=== PATIENT | female | born 1945 | race Caucasian/White ===

== ENCOUNTER 2018-07-17 09:56 | Observation (INO) | payer MEDICARE ==
[~2018-07-17] VITALS: Ht 172.7 cm; Wt 112.3 kg
[2018-07-17 11:00] LABS: BASOPHILS # (AUTO) 0.1 (0.0-0.1); BASOPHILS % 0.9 % (0.0-1.0); EOSINOPHILS # (AUTO) 0.4 (0.0-0.4); EOSINOPHILS % 4.5 % (0.0-6.0); HEMATOCRIT 46.2 % (34.2-44.1); HEMOGLOBIN 15.1 g/dL (12.0-16.0); LYMPHOCYTES # (AUTO) 1.9 (1.0-3.2); LYMPHOCYTES % 20.2 % (18.0-39.1); MEAN CORPUSCULAR HEMOGLOBIN 29.6 pg (28-32); MEAN CORPUSCULAR HGB CONC 32.7 g/dL (31-35); MEAN CORPUSCULAR VOLUME 90.6 fL (81-99); MONOCYTES # (AUTO) 0.7 (0.2-0.8); MONOCYTES % 6.8 % (4.4-11.3); NEUTROPHILS # (AUTO) 6.5 (2.1-6.9); NEUTROPHILS % 67.3 % (38.7-80.0); PLATELET COUNT 270 x10e3/uL (140-360); RED CELL DISTRIBUTION WIDTH 13.6 % (11.7-14.4)
[2018-07-17 11:21] LABS: ALANINE AMINOTRANSFERASE 11 IU/L (0-55); ALBUMIN 3.9 g/dL (3.5-5.0); ALBUMIN/GLOBULIN RATIO 1.1 (0.8-2.0); ALKALINE PHOSPHATASE 104 IU/L (40-150); AMYLASE 44 U/L (25-125); ANION GAP 12.1 mmol/L (8-16); BLOOD UREA NITROGEN 10 mg/dL (7-26); BUN/CREATININE RATIO 11 (6-25); CALCIUM 9.7 mg/dL (8.4-10.2); CARBON DIOXIDE 30 mmol/L (22-29); CHLORIDE 100 mmol/L (98-107); CREATININE, SERUM 0.87 mg/dL (0.57-1.11); EST GLOMERULAR FILTRATION RATE > 60 ML/MIN (60-); GLUCOSE 124 mg/dL (74-118); LIPASE 22 U/L (8-78); POTASSIUM 4.1 mmol/L (3.5-5.1); SODIUM 138 mmol/L (136-145)
[2018-07-17 11:48] LABS: CLARITY,URINE CLEAR (CLEAR); COLOR,URINE YELLOW (YELLOW)
[2018-07-17 11:49] LABS: BILIRUBIN,URINE NEGATIVE (NEGATIVE); KETONES,URINE NEGATIVE (NEGATIVE); LEUKOCYTE ESTERASE ,URINE NEGATIVE (NEGATIVE); NITRITE,URINE NEGATIVE (NEGATIVE); PROTEIN,URINE DIPSTICK NEGATIVE (NEGATIVE); URINE UROBILINOGEN 0.2 mg/dL (0.2 - 1)
[2018-07-17 12:15] LABS: BACTERIA,URINE FEW /HPF; EPITHELIAL CELLS,URINE FEW /LPF; RBC,URINE 0-5 /HPF (0-5)
[2018-07-17 12:33] LABS: INR 0.86; PROTHROMBIN TIME 12.2 seconds (11.9-14.5)
[2018-07-17 12:34] LABS: PARTIAL THROMBOPLASTIN TIME 26.2 seconds (23.8-35.5)
--- NOTE | 2018-07-17 14:30 | NUR ---
RECEIVED PT FROM [facility] WITH STEADY GAIT. PT GOWNED AND PLACED ON THE MONITOR
--- NOTE | 2018-07-17 14:35 | NUR ---
JHONNY MARTINEZ AT BEDSIDE FOR RECTAL EXAM. GUIAC POSITIVE. WILL SEND TO LAB
[2018-07-17] MEDS ORDERED: ALLOPURINOL300 MG PO (15:03)
[2018-07-17] MEDS ORDERED: COLCRYS0.6 MG PO (15:03)
[2018-07-17] MEDS ORDERED: FARXIGA PO (15:03)
[2018-07-17] MEDS ORDERED: FUROSEMIDE40 MG PO (15:03)
[2018-07-17] MEDS ORDERED: NORCO 10-325 T1 EACH PO (15:03)
[2018-07-17] MEDS ORDERED: LOVASTATIN20 MG PO (15:03)
[2018-07-17] MEDS ORDERED: LOVASTATIN40 MG (15:03)
[2018-07-17] MEDS ORDERED: METFORMIN HCL500 MG PO (15:03)
[2018-07-17] MEDS ORDERED: [UNRECOGNIZED DRUG - OTHER] PO (15:09)
[2018-07-17] MEDS ORDERED: ASPIR 8181 MG PO (15:09)
[2018-07-17] MEDS ORDERED: GABAPENTIN300 MG PO (15:09)
[2018-07-17] MEDS ORDERED: ZANAFLEX4 MG PO (15:09)
[2018-07-17] MEDS ORDERED: CARBIDOPA-LEVO1 EACH PO (15:09)
[2018-07-17] MEDS ORDERED: LINZESS PO (15:09)
[2018-07-17] MEDS ORDERED: COMBIVENT RESPIM4 GM IH (15:13)
[2018-07-17] MEDS ORDERED: SYMBICORT 16010.2 GM INH (15:13)
[2018-07-17] MEDS ORDERED: ONDANSETRON HCL INJ 2MG/ML 2ML 2 MG/ML VIAL IV PRN (16:15)
--- NOTE | 2018-07-17 17:05 | Diagnostic Imaging Report ---
EXAMINATION: CT of the abdomen and pelvis with contrast. TECHNIQUE: Spiral CT images of the abdomen and pelvis were performed from the lung bases to the lesser trochanters after the intravenous administration of 100 cc of Isovue-370. Coronal and sagittal reformatted images were obtained. COMPARISON: None. CLINICAL HISTORY:GI bleed, abdominal pain. Patient reports history of cholecystectomy, hysterectomy, breast reduction DISCUSSION: ABDOMEN/PELVIS: LOWER THORAX:Subsegmental atelectasis in the dependent lower lobes. HEPATOBILIARY: No focal hepatic lesions. No intra-or extrahepatic biliary ductal dilation. The gallbladder has been removed. SPLEEN: No splenomegaly. PANCREAS: No focal masses or ductal dilatation. ADRENALS: No adrenal nodules. KIDNEYS/URETERS: No hydronephrosis, stones, or solid mass lesions. PELVIC ORGANS/BLADDER: The bladder is normal. PERITONEUM/RETROPERITONEUM: No free air or fluid. LYMPH NODES: No pelvic sidewall, retroperitoneal, or mesenteric lymphadenopathy. VESSELS: Extensive atherosclerotic calcification of the abdominal aorta and major branch vessels. Incidental note of foth-cs-diso origins of the common hepatic and splenic arteries from the abdominal aorta. The left gastric artery originates separately as well, just superiorly to the common hepatic and splenic origins. The right hepatic artery is replaced to the superior mesenteric artery. Single bilateral renal arteries. LB origin is patent. Portal vein, splenic vein, and central superior mesenteric vein are patent. GI TRACT: The sigmoid colon is markedly redundant. Wall thickening, mucosal enhancement, and mesocolic inflammation involving the cecum and ascending colon. No drainable fluid collection. Appendix is normal. Small submucosal lipoma distal ileum. No small bowel dilatation to suggest obstruction. The stomach is collapsed with prominence of the rugal folds. BONES AND SOFT TISSUE: Multilevel degenerative disc changes and facet arthropathy of the lumbar spine. Soft tissue calcification inferior left breast. Otherwise no focal soft tissue abnormalities. IMPRESSION: Findings compatible with colitis involving the cecum and ascending colon, likely infectious or inflammatory in nature. No иван perforation or drainable fluid collection. Atherosclerotic vascular disease. Signed by: Dr. Holden Santana M.D. on 07/17/2018 5:02 PM
[2018-07-17] MEDS: SODIUM CHLORIDE 0.9% 1000ML 1,000 ML IV SCH ×2 (17:17→23:35)
[2018-07-17] MEDS: PANTOPRAZOLE 40 MG 10ML VIAL IV SCH (17:17)
[2018-07-17 17:45] LABS: HEMATOCRIT 43.3 % (34.2-44.1); HEMOGLOBIN 14.3 g/dL (12.0-16.0)
--- OUTSIDE RECORDS SUMMARY | 2018-07-17 18:18 | XMS REPORT ---
Author Author [facility] Address Unknown Phone Unavailable Care Team Providers Care Microbial Specialist Name Role Phone Alisa LARA Unavailable Unavailable Problems This patient has no known problems. Allergies, Adverse Reactions, Alerts This patient has no known allergies or adverse reactions. Medications This patient has no known medications. Results Test Description Test Time Test Comments Text Results Atomic Results Result Comments CT ABDOMEN/PELVIS W 2018-07-17 16:50:00 [place] [address] Patient Name: JAK DEGROOT MR #: [id number] : 1945 Age/Sex: 73/F Req #: [id number] Adm Physician: Ordered by: JHONNY KEY METAL HANGING SUPERVISOR Report #: [id number] Location: ER Room/Bed: Procedure: [id number] CT/CT ABDOMEN/PELVIS W Exam Date: 07/17/18 Exam Time: 1630 REPORT STATUS: Signed EXAMINATION: CT of the abdomen and pelvis with con trast. TECHNIQUE: Spiral CT images of the abdomen and pelvis were performed from the lung bases to the lesser trochanters after the intravenous administration of 100 cc of Isovue-370. Coronal and sagittal reformatted images were obtained. COMPARISON: None. CLINICAL HISTORY:GI bleed, abdominal pain. Patient reports history of cholecystectomy, hysterectomy, breast reduction DISCUSSION: ABDOMEN/PELVIS: LOWER THORAX:Subsegmental atelectasis in the dependent lower lobes. HEPATOBILIARY: No focal hepatic lesions. No intra-or extrahepatic biliary ductal dilation. The gallbladder has been removed. SPLEEN: No splenomegaly. PANCREAS: No focal masses or ductal dilatation. ADRENALS: No adrenal nodules. KIDNEYS/URETERS: No hydronephrosis, stones, or solid mass lesions. PELVIC ORGANS/BLADDER: The bladder is normal. PERITONEUM/RETROPERITONEUM: No free air or fluid. LYMPH NODES: No pelvic sidewall, retroperitoneal, or mesenteric lymphadenopathy. VESSELS: Extensive atherosclerotic calcification of the abdominal aorta and major branch vessels. Incidental note of ntjk-qd-rorn origins of the common hepatic and splenic arteries from the abdominal aorta. The left gastric artery originates separately as well, just superiorly to the common hepatic and splenic origins. The right hepatic artery is replaced to the superior mesenteric artery. Single bilateral renal arteries. LB origin is patent. Portal vein, splenic vein, and central superior mesenteric vein are patent. GI TRACT: The sigmoid colon is markedly redundant. Wall thickening, mucosal enhancement, and mesocolic inflammation involving the cecum and ascending colon. No drainable fluid collection. Appendix is normal. Small submucosal lip juan carlos distal ileum. No small bowel dilatation to suggest obstruction. The stomach is collapsed with prominence of the rugal folds. BONES AND SOFT TISSUE: Multilevel degenerative disc changes and facet arthropathy of the lumbar spine. Soft tissue calcification inferior left breast. Otherwise no focal soft tissue abnormalities. IMPRESSION: Findings compatible with colitis involving the cecum and ascending colon, likely infectious or inflammatory in nature. No иван perforation or drainable fluid collection. Atherosclerotic vascular disease. Signed by: Dr. Guevara Stack M.D. on 07/17/2018 5:02 PM Dictated By: GUEVARA STACK MD 01 Transcribed By: LON on 07/17/181701 COPY TO: JHONNY KEY NP
[2018-07-17] MEDS: LEVOFLOXACIN 750MG/D5W 150ML 150 ML IV SCH (19:45)
[2018-07-17 20:10] VITALS: BP 174/78
--- NOTE | 2018-07-17 20:20 | NUR ---
Admitted to unit. A&O x3. Oriented to environment and call light within reach. Explained that would be back to ask some questions and home med list. Verbalized understanding. Will continue to monitor.
--- NOTE | 2018-07-17 20:40 | NUR ---
Notifed answering service of Thiago Glynn of new consult and requesting call back for orders. Spoke with Ashish. Awaking call back.
[2018-07-17 20:45] VITALS: BP 174/78
[2018-07-17] MEDS ORDERED: IOPAMIDOL 370 MG/ML 200 ML INFUS..BTL INJ ONE (21:15)
[2018-07-17] MEDS ORDERED: SODIUM CHLORIDE 0.9% 50ML 50 ML ONE (21:15)
[2018-07-17 21:51] VITALS: BP 148/74
--- NOTE | 2018-07-17 22:10 | NUR ---
Return call from MD Dr Thiago Glynn. Patient concerned that NPO and DM and has not ate since breakfast. FSBS 123. Order for NS, Would like to change fluid. New orders: Fluid liquid diet, golytely prep and NPO after 0900 07/18/18, Consent for colonoscopy. Will come see patient.
[2018-07-17] MEDS ORDERED: PEG (High)/E-LYTE SOLN 4,000 ML BTL PO ONE (22:15)
[2018-07-17] MEDS: METRONIDAZOLE 500MG/NS 100ML 100 ML IV SCH (23:00)
[2018-07-17] MEDS ORDERED: LOSARTAN POTASS25 MG PO (23:00)
[2018-07-18] VITALS (8 sets, daily range): BP systolic 157–203; BP diastolic 72–115
--- NOTE | 2018-07-18 | NUR ---
Working on golytely prep. Needing to take a break and will drinks some more in a little while.
--- NOTE | 2018-07-18 02:30 | NUR ---
Working on [email or web address] prep, completed half of jug and having BM. Will continue to monitor.
--- NOTE | 2018-07-18 04:00 | NUR ---
Continues to work on golboarding pass prep. Tolerating fair. Dislikes flavoring that was in prep but continuing to drink. Will continue to monitor.
--- NOTE | 2018-07-18 04:37 | NUR ---
Up ambulating in landeros, tolerating well. Will continue to monitor.
[2018-07-18] MEDS: METRONIDAZOLE 500MG/NS 100ML 100 ML IV SCH ×3 (05:45→22:04)
--- NOTE | 2018-07-18 05:56 | NUR ---
Left message with answering service (Ally) for Dr Mckay for orders for elevated BP. Awaiting call back.
[2018-07-18 06:11] LABS: ANION GAP 10.6 mmol/L (8-16); BLOOD UREA NITROGEN 10 mg/dL (7-26); BUN/CREATININE RATIO 12 (6-25); CALCIUM 9.4 mg/dL (8.4-10.2); CARBON DIOXIDE 27 mmol/L (22-29); CHLORIDE 100 mmol/L (98-107); CREATININE, SERUM 0.81 mg/dL (0.57-1.11); EST GLOMERULAR FILTRATION RATE > 60 ML/MIN (60-); GLUCOSE 141 mg/dL (74-118); POTASSIUM 3.6 mmol/L (3.5-5.1); SODIUM 134 mmol/L (136-145)
--- NOTE | 2018-07-18 06:25 | NUR ---
Left message with Dr Mckay answering service ( Odalis) Need orders for elevated BP. Awaiting call back.
--- NOTE | 2018-07-18 06:47 | NUR ---
BP 181/84, 82. Waiting call back from Dr Mckay
--- NOTE | 2018-07-18 07:20 | NUR ---
Return call from Dr Mckay. BP at 0640 181/84, 82. Give hydralazine 10 mg IV Q 6 hrs PRN BP greater than 160/90 since will be NPO after 0900. Losartan 50 mg po daily, Clonidine 0.1mg po Q 6hrs PRN for BP greater than 160/90 ( give after procedure when not NPO) STAT CBC this am. Patient updated with new orders.
[2018-07-18] MEDS ORDERED: HYDRALAZINE HCL 20 MG/ML VIAL IV PRN (07:30)
--- NOTE | 2018-07-18 07:35 | NUR ---
PATIENT AMBULATED TO THE RESTROOM AND BACK TO BED. GOLYTELY TREATMENT IN PROGRESS. IV FLUID INFUSING ORDERED. FEET DRY AND SCALY, YELLOW SOCKS APPLIED. BED IN LOWER POSITION, CALL LIGHT AT REACH.
[2018-07-18 07:42] LABS: BASOPHILS # (AUTO) 0.1 (0.0-0.1); BASOPHILS % 0.9 % (0.0-1.0); EOSINOPHILS # (AUTO) 0.4 (0.0-0.4); HEMOGLOBIN 14.4 g/dL (12.0-16.0); LYMPHOCYTES % 22.1 % (18.0-39.1); MEAN CORPUSCULAR HEMOGLOBIN 29.4 pg (28-32); MEAN CORPUSCULAR HGB CONC 32.7 g/dL (31-35); MEAN CORPUSCULAR VOLUME 89.8 fL (81-99); MONOCYTES # (AUTO) 0.7 (0.2-0.8); MONOCYTES % 7.4 % (4.4-11.3); NEUTROPHILS % 65.3 % (38.7-80.0); PLATELET COUNT 254 x10e3/uL (140-360); RED CELL DISTRIBUTION WIDTH 13.6 % (11.7-14.4)
[2018-07-18] MEDS: PANTOPRAZOLE 40 MG 10ML VIAL IV SCH ×2 (09:24→17:35)
--- NOTE | 2018-07-18 11:19 | NUR ---
PATIENT REMAINS NPO FOR COLONOSCOPY, STOOL CLEARING AT THIS TIME. IN BED WITH CALL LIGHT AT REACH.
[2018-07-18] MEDS ORDERED: GLUCAGON FOR INJ 1 MG VIAL ONE (14:12)
--- NOTE | 2018-07-18 15:10 | NUR ---
Visit made by the Spiritual Care Department Pastoral Visitor, Deneen Osman. Pt out of room and no family at bedside. A card was left at the bedside to indicate a missed visit from a member of the Spiritual Care team and to inform the pt and family of the availability of a Microphone Operator 24 hours a day/7 days a week. A gauger chief delivery will follow up as able. IRAJ PARRISH Microphone Operator Spiritual Care Department O: [phone] Pager: [phone] ([phone] number calling from)
--- NOTE | 2018-07-18 15:37 | NUR ---
SOCIAL WORK INITIAL ASSESSMENT Chip Mixer to bedside to discuss plan of care with patient/family. CM/SW role and care transitions discussed. Anticipated discharge plan discussed along with duration of care. CM/SW discussed patients right to make decisions in care. CM/SW work hours given. Patient lives: IN HOUSE IN [place] WITH GOD DAUGHTER AND FAMILY Admit/Transfer: VIA ED FROM HOME POA/Emergency contact: GRANDDAUGHTER JERMAINE KELLEYITT [phone] GRANDDAUGHTER GREG IS POA [phone] Current/Previous Home Health: NONE PCP/Follow-up Care: AIDAN LOFTON [facility] Current/Previous DME: NONE Other Services: NONE Employment Status: RETIRED Areas of Concerns: NONE Referral Needs: NONE Education Needs: NONE IMM/HERNDON given and signed (if applicable): UPON ADMISSION Goal for discharge: RETURN HOME CM/SW left business card at the bedside with contact information. Name and number was also written on the patients whiteboard. Patient verbalized understanding of discussion. CM will follow-up with ongoing discharge and transition of care needs.
--- NOTE | 2018-07-18 16:00 | NUR ---
PATIENT BACK TO UNIT FROM ENDOSCOPY. REPORT RECEIVED FROM NICOLLEROE. PATIENT HAD A COLONOSCOPY, 14 POLYPS NOTED AND A MASS IN THE SIGMOID COLON. PATIENT IS ALERT AND VERBALLY RESPONSIVE. DENIED PAIN AT THIS TIME. IV ANTIBIOTIC INFUSING ORDERED. BED IN LOWER POSITION, CALL LIGHT AT REACH.
--- NOTE | 2018-07-18 16:05 | NUR ---
96.2-85-20-203/99 AND 96% ON RA.
[2018-07-18] MEDS: CLONIDINE HCL 0.1 MG TAB PO PRN ×2 (16:20→22:33)
[2018-07-18] MEDS: NICOTINE 21 MG/EA PATCH TOP SCH (16:23)
[2018-07-18] MEDS ORDERED: PROPOFOL IV EMULSION 10 MG/ML 20 ML VIAL ONE (17:21)
--- NOTE | 2018-07-18 17:23 | Operative Report ---
DATE OF PROCEDURE: 07/18/2018 SURGEON: Abimael Glynn MD PROCEDURES: Colonoscopy with polypectomy and biopsies. INDICATIONS FOR COLONOSCOPY: Rectal bleeding. MEDICATION: The patient was done under MAC, please see anesthesiologist's note. PROCEDURE IN DETAIL: With the patient in the left lateral decubitus position, flexible fiberoptic Olympus colonoscope was inserted into the rectum with ease and advanced with some difficulty all the way to the cecum. Two polyps were snared from the cecum. Four polyps were snared from the ascending colon. One polyp was snared from the hepatic flexure and one polyp was snared from the distal transverse colon. Three polyps were snared and two polyps were hot biopsied from the descending colon. One polyp was snared from the proximal sigmoid colon. A large approximately 5 cm somewhat circumferential mass was noted in the mid sigmoid colon and biopsies were obtained for frozen section and were positive for adenocarcinoma. The rest of the sigmoid and the rectum grossly appeared to be within normal limits. The scope was then retroflexed into the distal rectum and small internal hemorrhoids were noted, none of which was actively bleeding. The scope was then straightened out, it was subsequently withdrawn. The patient tolerated the procedure well. Of note, the prep overall was suboptimal with retained stools in the colon. IMPRESSION: 1. Cecal polyps x2, snared. 2. Ascending colon polyps x4, snared. 3. Hepatic flexure polyp x1, snared. 4. Transverse colon polyp x1, snared. 5. Descending colon polyps x5, three snared and 2 hot biopsied. 6. Proximal sigmoid colon polyp x1 snared. 7. Mid sigmoid mass approximately 5 cm in size, semicircumferential. Frozen section biopsies were positive for adeno CA. 8. Internal hemorrhoids, none actively bleeding. PLAN: Follow up histology. General surgical consultation. The patient will need a followup colonoscopy one year after her surgery. Abimael Glynn MD [facility] /[id number] cc: Cayla Mckay MD
[2018-07-18] MEDS ORDERED: MIDAZOLAM HCL 2 MG/2 ML VIAL ONE (17:26)
[2018-07-18] MEDS ORDERED: FENTANYL CITRATE/PF 100MCG/2 ML INJ ONE (17:26)
[2018-07-18] MEDS: LOSARTAN POTASSIUM 100 MG TAB PO SCH (17:30)
--- NOTE | 2018-07-18 17:55 | NUR ---
PATIENT NOTED WITH B/P OF 203/99. PRN CLONIDINE GIVEN. B/P RECHECKED WITH THE READING OF 187/98, SCHEDULE LOSARTAN GIVEN. WILL CLOSELY MONITOR.
--- NOTE | 2018-07-18 19:15 | NUR ---
Paged Dr Mckay ( spoke with Laurel) patient cleared from consults for discharge. Awaiting call back to see if cleared from Dr Mckay for discharge.
--- NOTE | 2018-07-18 19:54 | NUR ---
Return call from Dr Mckay. Notified that consults signed off and patient requesting to be discharged. Patient to stay another night to make sure tolerating diet, no bleeding and CBC in am. Will see patient in am.
[2018-07-18] MEDS: LEVOFLOXACIN 750MG/D5W 150ML 150 ML IV SCH (20:01)
[2018-07-18] MEDS: SODIUM CHLORIDE 0.9% 1000ML 1,000 ML IV SCH ×2 (22:07→23:46)
--- NOTE | 2018-07-18 23:00 | NUR ---
Patient refusing IV fluid. Would like to be disconnected, tolerating diet and fluid and would like to sleep without IV attached. Education provided, Verbalized understanding. IV saline locked.
[2018-07-19] VITALS: BP 119/59
[2018-07-19 04:00] VITALS: BP 151/70
[2018-07-19 05:57] LABS: BASOPHILS # (AUTO) 0.1 (0.0-0.1); BASOPHILS % 0.5 % (0.0-1.0); EOSINOPHILS # (AUTO) 0.3 (0.0-0.4); EOSINOPHILS % 2.2 % (0.0-6.0); HEMATOCRIT 39.8 % (34.2-44.1); HEMOGLOBIN 13.1 g/dL (12.0-16.0); LYMPHOCYTES # (AUTO) 1.7 (1.0-3.2); LYMPHOCYTES % 11.5 % (18.0-39.1); MEAN CORPUSCULAR HEMOGLOBIN 29.6 pg (28-32); MEAN CORPUSCULAR HGB CONC 32.9 g/dL (31-35); MEAN CORPUSCULAR VOLUME 89.8 fL (81-99); MONOCYTES # (AUTO) 0.7 (0.2-0.8); MONOCYTES % 4.4 % (4.4-11.3); PLATELET COUNT 244 x10e3/uL (140-360); RED BLOOD COUNT 4.43 x10e6/uL (3.6-5.1); RED CELL DISTRIBUTION WIDTH 13.5 % (11.7-14.4)
[2018-07-19] MEDS: METRONIDAZOLE 500MG/NS 100ML 100 ML IV SCH (05:59)
--- NOTE | 2018-07-19 06:09 | NUR ---
Paged Dr Thiago Glynn to clarify diet orders. Plan is patient to be discharged and on clear liquid diet.
--- NOTE | 2018-07-19 06:26 | NUR ---
Left message for Dr Mckay to clarify what diet would like patient to have this am. Currently clear liquid and wanted to make sure patient tolerate food before discharge. Awaiting call back.
--- NOTE | 2018-07-19 06:41 | NUR ---
Return call from Thiago Glynn: change diet to GI soft
--- NOTE | 2018-07-19 07:22 | NUR ---
Walking rounds done and report received. patient is awake and alertx3 in NAD. POC discussed. Patient is aware she will be started on GI soft diet. Tele#[phone], [phone] Patient instructed to call for assistance as needed and verbalized understanding.
[2018-07-19] MEDS: SODIUM CHLORIDE 0.9% 1000ML 1,000 ML IV SCH (08:03)
[2018-07-19 08:26] VITALS: BP 193/86
[2018-07-19] MEDS: LOSARTAN POTASSIUM 100 MG TAB PO SCH (08:39)
[2018-07-19] MEDS: PANTOPRAZOLE 40 MG 10ML VIAL IV SCH (08:39)
[2018-07-19] MEDS: NICOTINE 21 MG/EA PATCH TOP SCH (08:39)
[2018-07-19] MEDS: CLONIDINE HCL 0.1 MG TAB PO PRN (10:10)
[2018-07-19 11:00] VITALS: BP 145/65
[2018-07-19] MEDS ORDERED: LOSARTAN POTASSIUM 100 MG TAB PO SCH (11:00)
[2018-07-19] MEDS ORDERED: LOSARTAN POTAS100 MG PO (11:35)
[2018-07-19] MEDS ORDERED: ESIDRIX25 MG PO (11:36)
--- NOTE | 2018-07-19 12:09 | NUR ---
Patient discharged home with written instructions and prescriptions. She verbalized understanding. IV dc'd earlier, cath intact, and small dressing applied.
--- NOTE | 2018-07-20 06:54 | Discharge Summary ---
HISTORY: Ms. Ontiveros is a 73-year-old female with history of COPD, diabetes, hyperlipidemia, hypertension, tobacco abuse, arthritis, came to the Emergency Room complaining of blood in the stools. She had a colonoscopy done yesterday that showed some mass in the descending sigmoid area that probably looked like a malignancy. Surgical consult was placed, Dr. Navarro saw the patient, and the plan is to discharge her home today and have her followup with him as an outpatient to schedule colon resection. PHYSICAL EXAMINATION: GENERAL: Today, she is awake and alert. She denies any more bleeding. She is tolerating food. VITAL SIGNS: Temperature is 96.3 and blood pressure 151/70. HEART: Regular rate. LUNGS: Clear to auscultation. ABDOMEN: Soft. LABORATORY DATA: On the blood work, white count went up to 14.8, hemoglobin 13.1, hematocrit 39.8. Potassium 3.6, creatinine 0.81, glucose is 141. Stools are pending. ASSESSMENT: 1. Rectal bleeding. 2. Colonic mass, concerning for colon cancer, awaiting pathology. 3. Diabetes, type 2. 4. Hypertension. 5. Hyperlipidemia. 6. Chronic obstructive pulmonary disease. 7. Tobacco use. PLAN: The plan at present time is to discharge the patient home. Continue all her home medications. Continue ADA diet. Follow up with Dr. Navarro on Tuesday for colon resection electively. All this was discussed with the patient and all questions were answered to satisfaction. She is to call me or come back to the Emergency Room if any recurrent problem. Follow up with her PCP in 1 week. MD KYLAH Berry/KARRIE /[id number]
== END 2018-07-19 12:09 | disposition home or self-care (01) ==
LOC: ER 09:56 → INTOOBSV 16:03 → ERHOLD 16:03 → IMCU 20:41
PROVIDERS: ADMIT Internal Medicine; ATTEND Internal Medicine
DX: C18.7 Malignant neoplasm of sigmoid colon (principal); K51.811 Other ulcerative colitis with rectal bleeding; E78.5 Hyperlipidemia, unspecified; M54.9 Dorsalgia, unspecified; J44.9 Chronic obstructive pulmonary disease, unspecified; E11.9 Type 2 diabetes mellitus without complications; I10 Essential (primary) hypertension; D12.0 Benign neoplasm of cecum; K64.8 Other hemorrhoids; D12.2 Benign neoplasm of ascending colon; D12.4 Benign neoplasm of descending colon; D12.3 Benign neoplasm of transverse colon; Z83.3 Family history of diabetes mellitus; Z82.49 Family history of ischemic heart disease and other diseases of the circulatory system; Z87.891 Personal history of nicotine dependence; Z79.84 Long term (current) use of oral hypoglycemic drugs
CPT/HCPCS: 36415 ×3; 45385; 74177; 80048; 80053; 81001; 82150; 82270; 82948 ×3; 83690; 85014; 85018; 85025 ×3; 85610; 85730; 86850; 86900; 87045; 87493; 88305; 88331; 99284; C9113 ×3; G0378 ×3; J0360; J1610; J2250; J2405; J2704; J7030 ×3; Q9967; 45380; 45381; 45384

== ENCOUNTER 2018-08-02 06:29 | Inpatient (IN) | payer MEDICARE ==
[2018-08-01 10:02] LABS: BASOPHILS # (AUTO) 0.1 (0.0-0.1); BASOPHILS % 0.8 % (0.0-1.0); EOSINOPHILS # (AUTO) 0.5 (0.0-0.4); EOSINOPHILS % 4.1 % (0.0-6.0); HEMATOCRIT 44.4 % (34.2-44.1); HEMOGLOBIN 14.5 g/dL (12.0-16.0); LYMPHOCYTES # (AUTO) 1.8 (1.0-3.2); LYMPHOCYTES % 15.3 % (18.0-39.1); MEAN CORPUSCULAR HEMOGLOBIN 29.5 pg (28-32); MEAN CORPUSCULAR HGB CONC 32.7 g/dL (31-35); MEAN CORPUSCULAR VOLUME 90.4 fL (81-99); MONOCYTES # (AUTO) 0.8 (0.2-0.8); MONOCYTES % 6.6 % (4.4-11.3); NEUTROPHILS # (AUTO) 8.4 (2.1-6.9); NEUTROPHILS % 72.8 % (38.7-80.0); PLATELET COUNT 281 x10e3/uL (140-360); RED BLOOD COUNT 4.91 x10e6/uL (3.6-5.1); RED CELL DISTRIBUTION WIDTH 13.5 % (11.7-14.4)
--- NOTE | 2018-08-01 10:16 | Diagnostic Imaging Report ---
EXAMINATION: CHEST 2 VIEWS INDICATION: Pre-op. COMPARISON: None FINDINGS: TUBES and LINES: None. LUNGS: Lungs are well inflated. There is no evidence of pneumonia or pulmonary edema. Mild patchy left basilar opacity, likely atelectasis. PLEURA: No pleural effusion or pneumothorax. HEART AND MEDIASTINUM: The cardiomediastinal silhouette is unremarkable. There are atherosclerotic calcifications within the aorta. BONES AND SOFT TISSUES: No acute osseous abnormality. UPPER ABDOMEN: No free air under the diaphragm. IMPRESSION: No acute radiographic abnormality. Signed by: Dr. Gwendolyn Sheehan MD on 08/01/2018 10:13 AM
[~2018-08-02] VITALS: Ht 174 cm; Wt 103.9 kg
[~2018-08-02 06:29] MED LIST: ALLOPURINOL300 MG PO; ASPIR 8181 MG PO; CARBIDOPA-LEVO1 EACH PO; COLCRYS0.6 MG PO; COMBIVENT RESPIM4 GM IH; ESIDRIX25 MG PO; FARXIGA PO; FUROSEMIDE40 MG PO; GABAPENTIN300 MG PO; LINZESS PO; LOSARTAN POTAS100 MG PO; LOSARTAN POTASS25 MG PO; LOVASTATIN20 MG PO; LOVASTATIN40 MG; METFORMIN HCL500 MG PO; NORCO 10-325 T1 EACH PO; SYMBICORT 16010.2 GM INH; ZANAFLEX4 MG PO; [UNRECOGNIZED DRUG - OTHER] PO
[2018-08-02] MEDS ORDERED: MINERAL OIL STERILE 10ML VIAL ONE (12:31)
[2018-08-02] MEDS ORDERED: HYDROMORPHONE 1MG/1ML INJ IV PRN (13:45)
[2018-08-02] MEDS ORDERED: ROCURONIUM BROMIDE 10 MG/ML 5ML VIAL ONE (14:17)
[2018-08-02] MEDS ORDERED: DEXAMETHASONE SOD PHOS INJ 4 MG/ML VIAL ONE (14:17)
[2018-08-02] MEDS ORDERED: PROPOFOL IV EMULSION 10 MG/ML 20 ML VIAL ONE (14:17)
[2018-08-02] MEDS ORDERED: LIDOCAINE HCL 2% LOCAL INJ 5 ML SDV VIAL INJ ONE (14:17)
[2018-08-02] MEDS ORDERED: ONDANSETRON HCL INJ 2MG/ML 2ML 2 MG/ML VIAL ONE (14:17)
[2018-08-02] MEDS ORDERED: ATROPINE SULFATE 1 MG/ML VIAL ONE (14:17)
[2018-08-02] MEDS ORDERED: NEOSTIGMINE 5 MG/5ML SYR ONE (14:17)
[2018-08-02] MEDS ORDERED: IBUPROFEN 800 MG/250 ML BAG IV ONE (14:17)
[2018-08-02] MEDS ORDERED: SEVOFLURANE INHAL SOLN 250 ML PEN BTL ONE (14:17)
[2018-08-02] MEDS ORDERED: HYDROMORPHONE 2MG/ML 2 MG/ML ML ONE (14:21)
[2018-08-02] MEDS ORDERED: MIDAZOLAM HCL 2 MG/2 ML VIAL ONE (14:35)
[2018-08-02] MEDS ORDERED: FENTANYL CITRATE/PF 100MCG/2 ML INJ ONE (14:35)
[2018-08-02] MEDS ORDERED: METOCLOPRAMIDE HCL 10 MG/2ML VIAL ONE (14:38)
[2018-08-02] MEDS ORDERED: INSULIN REGULAR, HUMAN 100 UNIT/1 ML 3ML VIAL ONE (14:56)
[2018-08-02 16:00] VITALS: BP 128/62
[2018-08-02] MEDS ORDERED: DEXTROSE 50% SYRINGE 50 ML IV PRN (16:00)
[2018-08-02] MEDS ORDERED: PANTOPRAZOLE 40 MG 10ML VIAL IV SCH (16:00)
--- NOTE | 2018-08-02 16:01 | Operative Report ---
DATE OF PROCEDURE: 08/02/2018 SURGEON: Ryley Navarro MD PREOPERATIVE DIAGNOSIS: Carcinoma of the sigmoid colon. POSTOPERATIVE DIAGNOSIS: Carcinoma of the sigmoid colon. OPERATIONS PERFORMED: Exploratory laparotomy, low anterior resection with transanal stapled anastomosis and bilateral salpingo-oophorectomy. WEALTH MANAGEMENT MANAGER: Dr. Skinny Navarro. ANESTHESIA: General. SECOND WEALTH MANAGEMENT MANAGER: ELLEN Appiah. COMPLICATIONS: None. ESTIMATED BLOOD LOSS: Minimal. DESCRIPTION OF PROCEDURE: With the patient lying in bed in the supine position with legs in stirrups, the abdomen and perineum were prepped with Betadine solution and draped in the usual manner. A lower midline incision was made, it was carried down through the subcutaneous tissue down to the midline fascia. The midline fascia was opened and the abdomen was entered. Upon entering the abdominal cavity, exploration revealed some adhesions in the right upper quadrant for the patient's previous cholecystectomy. The liver appeared to be free of any metastatic disease. Examination revealed a tattooed mass in the sigmoid colon, which was about the level of the mid sigmoid colon. The rest of the bowel appeared to be within normal limits. The left adnexa was stuck to the colon from the patient's previous hysterectomy and we decided to go ahead and do a bilateral salpingo-oophorectomy at the same time. The left colon was then mobilized over the lateral gutter and the splenic flexure was brought down using the EnSeal device. The right and left ureter were identified and preserved in the entire dissection and the left adnexa was resected first. The blood supply was then ligated with an 0-silk tie and using the EnSeal device the left adnexa was removed without any difficulty. The right adnexa was similarly stuck in some adhesions from the patient's previous hysterectomy and this was similarly resected and sent for pathological examination. Using the EnSeal device, the mesentery of the colon was then slowly and carefully taken down. The descending colon was divided with an application of SHELLIE-75 stapler and the mesenteric pedicle was taken all the way down to the inferior mesenteric artery at which point it was ligated with 0-silk tie and divided with the EnSeal device. The mesentery was then taken all the way down to the rectosigmoid junction and the rectosigmoid junction was then divided with an application of a TA-60 stapler and the specimen was sent for pathological examination. The whole area was thoroughly irrigated. Perfect hemostasis was ascertained. The descending colon was then brought down and it reached into the pelvis without any tension whatsoever. Staple line was removed and a #33 EEA. Anvil was placed inside of the colon and held in place with pursestring suture of 2-0 Prolene. After this was done, we then went from below and the anus and rectum were dilated up to a size 33 EEA dilator. The stapler was then introduced transanally and brought out through the staple line in the center and the proximal anvil and the stapler were then joined without any difficulty and the stapler was closed and fired. Two perfect donuts were obtained. Gloves and instruments were then changed. The abdomen was irrigated. Hemostasis was ascertained. The anastomosis was then reinforced with some 3-0 silk sutures. A 10 flat Figueroa-Swenson drain was then left in the retrorectal space and brought out through the right lower quadrant incision and the abdomen was then closed in layers. The peritoneum was closed with a running suture of #1 Vicryl. The midline fascia was closed with a running suture of #1 Vicryl. Subcutaneous tissue was approximated with 2-0 chromic and the skin was closed with clips. A dressing was applied. The sponge, lap, and needle count was correct. The patient tolerated the procedure well and returned to the recovery room in stable condition. MD YUE Rebollar/KARRIE /[id number]
[2018-08-02] MEDS: HYDROMORPHONE 2MG/ML 2 MG/ML ML IV PRN ×2 (16:22→21:40)
[2018-08-02] MEDS: SODIUM CHLORIDE 0.9% 1000ML 1,000 ML IV SCH ×2 (16:30→23:01)
[2018-08-02 17:00] VITALS: BP 137/70
[2018-08-02] MEDS: SODIUM CHLORIDE 0.9% 250ML IRRIG IR SCH ×2 (17:27→22:15)
[2018-08-02] MEDS: CEFOXITIN 1GM/ D5W 50ML 50 ML IV SCH ×2 (17:30→23:01)
[2018-08-02] MEDS: INSULIN REGULAR, HUMAN 100 UNIT/1 ML 3ML VIAL SQ SCH (17:53)
[2018-08-02] MEDS ORDERED: CEFOXITIN SOD 1 GM VIAL ONE (17:53)
[2018-08-02 19:00] VITALS: BP 137/75
[2018-08-02 21:00] VITALS: BP 183/78
[2018-08-02 23:00] VITALS: BP 144/69
[2018-08-02] MEDS: NICOTINE 21 MG/EA PATCH TOP SCH (23:00)
[2018-08-02 23:59] VITALS: BP 144/69
[2018-08-03] VITALS (21 sets, daily range): BP systolic 97–184; BP diastolic 37–96
[2018-08-03] MEDS: HYDROMORPHONE 2MG/ML 2 MG/ML ML IV PRN ×6 (00:41→20:29)
[2018-08-03] MEDS: SODIUM CHLORIDE 0.9% 250ML IRRIG IR SCH ×6 (01:47→20:18)
[2018-08-03] MEDS: ACETAMINOPHEN 1000 MG/100 ML IV PRN ×3 (03:42→20:27)
[2018-08-03] MEDS: INSULIN REGULAR, HUMAN 100 UNIT/1 ML 3ML VIAL SQ SCH ×4 (06:00→18:00)
[2018-08-03 06:03] LABS: BASOPHILS % 0.2 % (0.0-1.0); LYMPHOCYTES # (AUTO) 1.2 (1.0-3.2); LYMPHOCYTES % 4.8 % (18.0-39.1); MEAN CORPUSCULAR HEMOGLOBIN 29.3 pg (28-32); MEAN CORPUSCULAR HGB CONC 32.5 g/dL (31-35); MEAN CORPUSCULAR VOLUME 90.1 fL (81-99); MONOCYTES # (AUTO) 1.2 (0.2-0.8); MONOCYTES % 4.8 % (4.4-11.3); NEUTROPHILS # (AUTO) 21.7 (2.1-6.9); NEUTROPHILS % 89.7 % (38.7-80.0); PLATELET COUNT 284 x10e3/uL (140-360); RED BLOOD COUNT 4.44 x10e6/uL (3.6-5.1); RED CELL DISTRIBUTION WIDTH 13.3 % (11.7-14.4)
[2018-08-03 06:18] LABS: ANION GAP 9.6 mmol/L (8-16); BLOOD UREA NITROGEN 10 mg/dL (7-26); BUN/CREATININE RATIO 12 (6-25); CALCIUM 8.7 mg/dL (8.4-10.2); CARBON DIOXIDE 30 mmol/L (22-29); CHLORIDE 103 mmol/L (98-107); CREATININE, SERUM 0.85 mg/dL (0.57-1.11); EST GLOMERULAR FILTRATION RATE > 60 ML/MIN (60-); GLUCOSE 160 mg/dL (74-118); POTASSIUM 3.6 mmol/L (3.5-5.1); SODIUM 139 mmol/L (136-145)
--- NOTE | 2018-08-03 06:21 | NUR ---
NOTED THAT PATIENTs NGT OUTPUT WHILE IRRIGATING VIA NIGHT THAT IT HAS A VERY FOUL STRONG SMELL TO IT ALONG WITH THE COLOR OF THE DRAINAGE STARTED OUT CLEAR WITH SOME BROWN SEDIMENTS TO LIGHT BROWN IN COLOR TO NOW A DARKER BROWN.
[2018-08-03] MEDS: SODIUM CHLORIDE 0.9% 1000ML 1,000 ML IV SCH ×2 (10:30→23:38)
[2018-08-03] MEDS: ONDANSETRON HCL INJ 2MG/ML 2ML 2 MG/ML VIAL IV PRN ×2 (11:04→20:27)
[2018-08-03] MEDS: FAMOTIDINE 20 MG/2 ML VIAL IV SCH (14:00)
[2018-08-03] MEDS: LOSARTAN POTASSIUM 100 MG TAB PO SCH (15:08)
[2018-08-03] MEDS: SALIVA SUBSTITUTE 45 ML LIQD MM PRN (17:21)
[2018-08-03] MEDS ORDERED: HYDRALAZINE HCL 20 MG/ML VIAL ONE (20:07)
[2018-08-03] MEDS: HYDRALAZINE HCL 20 MG/ML VIAL IV PRN (20:10)
[2018-08-03] MEDS: NICOTINE 21 MG/EA PATCH TOP SCH (23:38)
[2018-08-04] VITALS (15 sets, daily range): BP systolic 111–191; BP diastolic 62–99
[2018-08-04] MEDS: HYDROMORPHONE 2MG/ML 2 MG/ML ML IV PRN ×5 (00:34→21:00)
[2018-08-04] MEDS: SODIUM CHLORIDE 0.9% 250ML IRRIG IR SCH ×7 (01:19→22:36)
[2018-08-04] MEDS: ACETAMINOPHEN 1000 MG/100 ML IV PRN ×2 (04:05→10:29)
[2018-08-04] MEDS: HYDRALAZINE HCL 20 MG/ML VIAL IV PRN ×3 (04:31→16:45)
[2018-08-04 04:49] LABS: BASOPHILS # (AUTO) 0.1 (0.0-0.1); BASOPHILS % 0.3 % (0.0-1.0); EOSINOPHILS # (AUTO) 0.1 (0.0-0.4); EOSINOPHILS % 0.6 % (0.0-6.0); HEMATOCRIT 40.3 % (34.2-44.1); HEMOGLOBIN 12.8 g/dL (12.0-16.0); LYMPHOCYTES # (AUTO) 1.2 (1.0-3.2); LYMPHOCYTES % 7.2 % (18.0-39.1); MEAN CORPUSCULAR HEMOGLOBIN 28.9 pg (28-32); MEAN CORPUSCULAR HGB CONC 31.8 g/dL (31-35); NEUTROPHILS # (AUTO) 14.6 (2.1-6.9); NEUTROPHILS % 85.2 % (38.7-80.0); PLATELET COUNT 243 x10e3/uL (140-360); RED BLOOD COUNT 4.43 x10e6/uL (3.6-5.1); RED CELL DISTRIBUTION WIDTH 13.4 % (11.7-14.4)
[2018-08-04 05:04] LABS: ANION GAP 11.1 mmol/L (8-16); BLOOD UREA NITROGEN 10 mg/dL (7-26); BUN/CREATININE RATIO 14 (6-25); CALCIUM 9.2 mg/dL (8.4-10.2); CARBON DIOXIDE 30 mmol/L (22-29); CHLORIDE 103 mmol/L (98-107); CREATININE, SERUM 0.73 mg/dL (0.57-1.11); EST GLOMERULAR FILTRATION RATE > 60 ML/MIN (60-); GLUCOSE 148 mg/dL (74-118); POTASSIUM 4.1 mmol/L (3.5-5.1); SODIUM 140 mmol/L (136-145)
[2018-08-04] MEDS: INSULIN REGULAR, HUMAN 100 UNIT/1 ML 3ML VIAL SQ SCH ×4 (06:00→18:00)
[2018-08-04] MEDS: LOSARTAN POTASSIUM 100 MG TAB PO SCH (09:07)
[2018-08-04] MEDS: FAMOTIDINE 20 MG/2 ML VIAL IV SCH (09:07)
[2018-08-04] MEDS: ONDANSETRON HCL INJ 2MG/ML 2ML 2 MG/ML VIAL IV PRN ×2 (10:29→21:00)
[2018-08-04] MEDS: SODIUM CHLORIDE 0.9% 1000ML 1,000 ML IV SCH ×2 (10:32→15:53)
--- NOTE | 2018-08-04 17:02 | NUR ---
PT TRANSFERRED TO ROOM 108
--- NOTE | 2018-08-04 17:05 | NUR ---
RECEIVED PATIENT TO ROOM AOX3, NG TUBE TO LEFT NARE LCWS, WITH DARK BROWN FLUID NOTED, DRESSING TO ABDOMEN WITH BINDER IN PLACE, AXEL WITH BLOODY DRAINAGE NOTED, DENIES PAIN, NO SIGNS OF DISTRESS, CALL LIGHT WITHIN REACH, WILL CONTINUE TO MONITOR.
--- NOTE | 2018-08-04 18:56 | NUR ---
WALKING ROUNDS PERFORMED, RECEIVED PT LAYING SEMI FOWLERS IN BED, AAOX3, RR EVEN AND NON-LABORED, O2 BY NC AT 3L. NO S/SX OF DISTRESS NOTED. NGT TO (L) NARE CONNECTED TO LOW CONTINUOUS SUCTION. LEFT PT LAYING SEMI FOWLERS IN BED, BED IN LOW LOCKED POSITION, SIDE RAILS UPX2, CALL LIGHT AND PHONE WITHIN REACH.
[2018-08-04] MEDS ORDERED: ACETAMINOPHEN 1000 MG/100 ML IV PRN (20:45)
[2018-08-04] MEDS: ACETAMINOPHEN 1000 MG/100 ML 100 ML IV PRN (21:00)
[2018-08-04] MEDS ORDERED: ONDANSETRON HCL 4 MG ORAL DISINTEGRATING TAB PO PRN (21:00)
[2018-08-04] MEDS: SALIVA SUBSTITUTE 45 ML LIQD MM PRN (21:05)
[2018-08-04] MEDS: CARBIDOPA/LEVODOPA 10/100 TAB PO SCH (21:07)
[2018-08-04] MEDS: NICOTINE 21 MG/EA PATCH TOP SCH (21:07)
[2018-08-05] VITALS (10 sets, daily range): BP systolic 154–209; BP diastolic 60–93
[2018-08-05] MEDS: HYDRALAZINE HCL 20 MG/ML VIAL IV PRN ×4 (00:46→21:02)
[2018-08-05] MEDS: SODIUM CHLORIDE 0.9% 1000ML 1,000 ML IV SCH ×4 (01:44→21:28)
[2018-08-05] MEDS: HYDROMORPHONE 2MG/ML 2 MG/ML ML IV PRN ×3 (03:55→21:02)
[2018-08-05] MEDS: ONDANSETRON HCL INJ 2MG/ML 2ML 2 MG/ML VIAL IV PRN ×4 (03:55→21:02)
[2018-08-05] MEDS: SODIUM CHLORIDE 0.9% 250ML IRRIG IR SCH ×6 (04:09→23:15)
--- NOTE | 2018-08-05 04:22 | NUR ---
PT REPORTS SHE IS UNABLE TO URINATE, BLADDER IS HARD TO PALPATION. PT ATTEMPTED TO SIT ON BEDPAN, WAS UNABLE TO URINATE. BLADDER SCAN ATTEMPTED BUT DRESSING COVERING BLADDER. PAGE PLACED FOR MD Hi CLINE. WAS NOTIFIED BY ANSWERING SERVICE THAT Miladys CLINE EKG MANAGER. WAITING FOR CALL BACK.
--- NOTE | 2018-08-05 05:27 | NUR ---
CHANGED SUCTION CANISTER AT THIS TIME.
[2018-08-05] MEDS: INSULIN REGULAR, HUMAN 100 UNIT/1 ML 3ML VIAL SQ SCH ×4 (05:52→18:00)
[2018-08-05] MEDS: FAMOTIDINE 20 MG/2 ML VIAL IV SCH (08:45)
[2018-08-05] MEDS: LOSARTAN POTASSIUM 100 MG TAB PO SCH (08:45)
[2018-08-05] MEDS: CARBIDOPA/LEVODOPA 10/100 TAB PO SCH ×3 (08:45→20:57)
[2018-08-05] MEDS: ACETAMINOPHEN 1000 MG/100 ML 100 ML IV PRN ×2 (08:50→18:45)
[2018-08-05 09:14] LABS: BASOPHILS # (AUTO) 0.1 (0.0-0.1); BASOPHILS % 0.4 % (0.0-1.0); EOSINOPHILS # (AUTO) 0.1 (0.0-0.4); EOSINOPHILS % 0.8 % (0.0-6.0); HEMATOCRIT 41.8 % (34.2-44.1); HEMOGLOBIN 13.1 g/dL (12.0-16.0); LYMPHOCYTES # (AUTO) 1.4 (1.0-3.2); LYMPHOCYTES % 7.8 % (18.0-39.1); MEAN CORPUSCULAR HEMOGLOBIN 28.5 pg (28-32); MEAN CORPUSCULAR HGB CONC 31.3 g/dL (31-35); MEAN CORPUSCULAR VOLUME 91.1 fL (81-99); MONOCYTES % 5.4 % (4.4-11.3); NEUTROPHILS # (AUTO) 14.9 (2.1-6.9); NEUTROPHILS % 84.7 % (38.7-80.0); PLATELET COUNT 290 x10e3/uL (140-360); RED BLOOD COUNT 4.59 x10e6/uL (3.6-5.1); RED CELL DISTRIBUTION WIDTH 13.7 % (11.7-14.4)
[2018-08-05 09:35] LABS: ANION GAP 11.8 mmol/L (8-16); BLOOD UREA NITROGEN 14 mg/dL (7-26); BUN/CREATININE RATIO 21 (6-25); CALCIUM 9.7 mg/dL (8.4-10.2); CARBON DIOXIDE 33 mmol/L (22-29); CHLORIDE 103 mmol/L (98-107); CREATININE, SERUM 0.67 mg/dL (0.57-1.11); EST GLOMERULAR FILTRATION RATE > 60 ML/MIN (60-); GLUCOSE 142 mg/dL (74-118); POTASSIUM 3.8 mmol/L (3.5-5.1); SODIUM 144 mmol/L (136-145)
--- NOTE | 2018-08-05 17:03 | NUR ---
PATIENT SAT ON BEDSIDE WITH ASSISTANCE FOR 10 MINUTES, ALSO STOOD UP FOR 5 MINUTES WITH WALKER, PATIENT TOLERATED WELL, LAID BACK IN BED, NO SIGNS OF DISTRESS, CALL LIGHT WITHIN REACH, WILL CONTINUE TO MONITOR.
--- NOTE | 2018-08-05 19:01 | NUR ---
WALKING ROUNDS PERFORMED, RECEIVED PT LAYING SEMI FOWLERS IN BED, AAOX3, RR EVEN AND NON-LABORED, O2 BY NC AT 3L. NO S/SX OF DISTRESS NOTED. NGT TO (L) NARE CONNECTED TO LCS. LEFT PT LAYING SEMI FOWLERS IN BED, BED IN LOW LOCKED POSITION. SIDE RAILS UPX2, CALL LIGHT AND PHONE WITHIN REACH.
--- NOTE | 2018-08-05 19:30 | NUR ---
SPOKE WITH MD Miladys CLINE CONCERNING ELEVATED SBP OVER 200. NEW ORDERS RECEIVED TO CONSULT CARDIOLOGY MD LANDAVERDE FOR BP MANAGEMENT.
--- NOTE | 2018-08-05 19:35 | NUR ---
CONSULTATION CALLED TO MD LANDAVERDE. WAITING FOR CALLBACK.
--- NOTE | 2018-08-05 20:32 | NUR ---
SPOKE WITH MD LANDAVERDE CONCERNING ELEVATED BP, NEW ORDERS RECEIVED.
[2018-08-05] MEDS: METOPROLOL TARTRATE 50 MG TAB PO SCH (20:57)
[2018-08-05] MEDS: NICOTINE 21 MG/EA PATCH TOP SCH (20:57)
[2018-08-06] VITALS (12 sets, daily range): BP systolic 160–220; BP diastolic 75–102
[2018-08-06] MEDS: SODIUM CHLORIDE 0.9% 1000ML 1,000 ML IV SCH ×3 (00:02→19:53)
[2018-08-06] MEDS: HYDRALAZINE HCL 20 MG/ML VIAL IV PRN ×4 (02:25→20:59)
[2018-08-06] MEDS: ONDANSETRON HCL INJ 2MG/ML 2ML 2 MG/ML VIAL IV PRN ×3 (02:25→20:59)
[2018-08-06] MEDS: HYDROMORPHONE 2MG/ML 2 MG/ML ML IV PRN ×3 (02:25→20:59)
[2018-08-06] MEDS: SODIUM CHLORIDE 0.9% 250ML IRRIG IR SCH ×6 (05:12→23:32)
[2018-08-06] MEDS: INSULIN REGULAR, HUMAN 100 UNIT/1 ML 3ML VIAL SQ SCH ×5 (05:50→23:56)
[2018-08-06] MEDS: ACETAMINOPHEN 1000 MG/100 ML 100 ML IV PRN ×3 (07:20→15:50)
[2018-08-06] MEDS: METOPROLOL TARTRATE 50 MG TAB PO SCH ×2 (08:45→20:59)
[2018-08-06] MEDS: LOSARTAN POTASSIUM 100 MG TAB PO SCH (08:45)
[2018-08-06] MEDS: CARBIDOPA/LEVODOPA 10/100 TAB PO SCH ×3 (08:45→20:59)
[2018-08-06] MEDS: FAMOTIDINE 20 MG/2 ML VIAL IV SCH (08:45)
[2018-08-06] MEDS: HYDROCHLOROTHIAZIDE 25 MG TAB PO SCH (09:56)
[2018-08-06 10:11] LABS: BASOPHILS # (AUTO) 0.1 (0.0-0.1); BASOPHILS % 0.5 % (0.0-1.0); EOSINOPHILS # (AUTO) 0.2 (0.0-0.4); EOSINOPHILS % 1.6 % (0.0-6.0); HEMATOCRIT 41.9 % (34.2-44.1); HEMOGLOBIN 13.1 g/dL (12.0-16.0); LYMPHOCYTES # (AUTO) 1.2 (1.0-3.2); MEAN CORPUSCULAR HGB CONC 31.3 g/dL (31-35); MEAN CORPUSCULAR VOLUME 92.7 fL (81-99); MONOCYTES # (AUTO) 0.9 (0.2-0.8); MONOCYTES % 6.3 % (4.4-11.3); NEUTROPHILS # (AUTO) 12.2 (2.1-6.9); NEUTROPHILS % 82.8 % (38.7-80.0); PLATELET COUNT 306 x10e3/uL (140-360); RED BLOOD COUNT 4.52 x10e6/uL (3.6-5.1); RED CELL DISTRIBUTION WIDTH 13.7 % (11.7-14.4)
[2018-08-06 10:38] LABS: ALBUMIN 2.7 g/dL (3.5-5.0); ALBUMIN/GLOBULIN RATIO 0.8 (0.8-2.0); ALKALINE PHOSPHATASE 84 IU/L (40-150); ANION GAP 11.5 mmol/L (8-16); BLOOD UREA NITROGEN 16 mg/dL (7-26); BUN/CREATININE RATIO 24 (6-25); CALCIUM 9.3 mg/dL (8.4-10.2); CARBON DIOXIDE 32 mmol/L (22-29); CHLORIDE 103 mmol/L (98-107); CREATININE, SERUM 0.67 mg/dL (0.57-1.11); EST GLOMERULAR FILTRATION RATE > 60 ML/MIN (60-); GLUCOSE 134 mg/dL (74-118); POTASSIUM 3.5 mmol/L (3.5-5.1); SODIUM 143 mmol/L (136-145)
[2018-08-06 10:39] LABS: ALANINE AMINOTRANSFERASE < 6 IU/L (0-55)
[2018-08-06] MEDS ORDERED: AMLODIPINE BESYLATE 5 MG TAB PO SCH ×2 (11:00→15:00)
[2018-08-06] MEDS ORDERED: BISACODYL 10 MG SUPP PR ONE ×3 (11:30→20:00)
--- NOTE | 2018-08-06 11:56 | Diagnostic Imaging Report ---
Exam: Abdominal film Clinical History: Placement of NG tube Comparison: None. DISCUSSION: Enteric tube placed with the tip overlying the left upper quadrant. Postsurgical change right lung. IMPRESSION: Enteric tube placed with the tip overlying the left upper quadrant. Signed by: Dr. Kolby Dudley M.D. on 08/06/2018 11:53 AM
[2018-08-06] MEDS: METOCLOPRAMIDE HCL 10 MG/2ML VIAL IV SCH ×3 (12:05→23:56)
[2018-08-06] MEDS: METOPROLOL TARTRATE INJ 1 MG/ML VIAL IV PRN ×2 (12:36→18:20)
--- NOTE | 2018-08-06 14:27 | Consultation ---
DATE OF CONSULTATION: Cardiology Consultation REASON FOR CONSULTATION: Hypertension. CONSULTING PHYSICIAN: Dr. Navarro. HISTORY OF PRESENT ILLNESS: Ms. Ontiveros is a 73-year-old female, who reports that she has been hospitalized for a while status post colon resection due to malignant colon tumor. She has been recovering well and being monitored closely. However, in the last few days, her blood pressure has been noted to be quite high, systolic in the 200s at times. She has a pertinent past medical history of hypertension, diabetes, and also COPD. At this time, she denies any chest pain, worsening shortness of breath, palpitations, dizziness, or syncope. She does endorse abdominal pain and has an abdominal incision site. PAST MEDICAL HISTORY: Hypertension, gout, diabetes mellitus type 2, restless legs syndrome, COPD, on oxygen. PAST SURGICAL HISTORY: Cholecystectomy, hysterectomy, breast reduction, cataract surgery, detached retina surgery, and right foot surgery. SOCIAL HISTORY: She lives with her daughter. She does smoke about 3/4 pack of cigarettes every day. Denies any alcohol or illicit drug use. REVIEW OF SYSTEMS: Negative except as mentioned above. PHYSICAL EXAMINATION: VITAL SIGNS: Temperature 97.3, pulse 96, respiratory rate 18, blood pressure 190/90, oxygen saturation 94% on 3 L nasal cannula. GENERAL: Alert and oriented x3. Resting comfortably in bed. Does not appear to be in any acute distress. NECK: Supple. No JVD noted. Has an NG tube in the right nostril. LUNGS: Diminished breath sounds anterior lower lobes, otherwise clear to auscultation. No wheezing, rhonchi, or crackles. CARDIOVASCULAR: Regular rate and rhythm. Normal S1, S2. No murmurs. No gallops noted. ABDOMEN: Has abdominal binder in place. Normoactive bowel sounds. EXTREMITIES: Lower extremities; trace edema bilaterally, 2+ pedal pulses. CARDIOVASCULAR MEDICATIONS: 1. Metoprolol 50 mg p.o. b.i.d. 2. Losartan 100 mg p.o. daily. 3. Hydralazine 20 mg q.4 hours p.r.n. for systolic blood pressure greater than 160. 4. Hydrochlorothiazide 25 mg p.o. daily. 5. Amlodipine 5 mg p.o. daily. 6. Metoprolol 5 mg q.5 hours p.r.n. for hypertension. LABORATORY DATA: No new labs today. IMPRESSION: 1. Hypertensive urgency. 2. Diabetes mellitus type 2. 3. Chronic obstructive pulmonary disease. 4. Colon resection due to a malignant tumor. RECOMMENDATIONS: Medications were adjusted this morning for better blood pressure control. Echocardiogram has been ordered. Awaiting completion and review and recommendations will follow. Continue to monitor this patient very closely. P.r.n. option for blood pressure control given. Monitor renal function and electrolytes. Thank you Dr. Navarro for this consultation and allowing us to participate in this patient's care. We will continue to follow very closely. Dictated by Dayan Hearn NP Efrain Alvarez MD JWV/KARRIE /[id number]
--- NOTE | 2018-08-06 19:07 | NUR ---
WALKING ROUNDS PERFORMED, RECEIVED PT LAYING SEMI FOWLERS IN BED, AAOX3, RR EVEN AND NON-LABORED, O2 BY NC AT 3L. NO S/SX OF DISTRESS NOTED. DRESSING TO ANTERIOR ABD NOTED TO BE CDI. STEWART INTACT DRAINING CLEAR YELLOW URINE TO BEDSIDE BAG. NGT TO (L) NARE CONNECTED TO LCS. LEFT PT LAYING SEMI FOWLERS IN BED, BED IN LOW LOCKED POSITION, SIDE RAILS UPX2, CALL LIGHT AND PHONE WITHIN REACH.
[2018-08-06] MEDS ORDERED: BISACODYL 10 MG SUPP PR PRN (20:00)
[2018-08-06] MEDS: NICOTINE 21 MG/EA PATCH TOP SCH (20:59)
--- NOTE | 2018-08-06 20:59 | NUR ---
AFTER MEDICATION ADMINISTRATION THROUGH NGT, NGT CLAMPED.
--- NOTE | 2018-08-06 22:29 | NUR ---
NGT RE-CONNECTED TO SUCTION AT THIS TIME.
--- NOTE | 2018-08-06 22:38 | NUR ---
SUCTION CANISTER CHANGED AT THIS TIME.
[2018-08-07] VITALS (9 sets, daily range): BP systolic 176–192; BP diastolic 77–88
[2018-08-07] MEDS: HYDRALAZINE HCL 20 MG/ML VIAL IV PRN ×5 (01:17→22:08)
[2018-08-07] MEDS: HYDROMORPHONE 2MG/ML 2 MG/ML ML IV PRN ×2 (01:17→05:51)
[2018-08-07] MEDS: ONDANSETRON HCL INJ 2MG/ML 2ML 2 MG/ML VIAL IV PRN ×2 (01:17→05:51)
[2018-08-07] MEDS: SODIUM CHLORIDE 0.9% 1000ML 1,000 ML IV SCH ×3 (03:36→16:40)
[2018-08-07] MEDS: SODIUM CHLORIDE 0.9% 250ML IRRIG IR SCH ×5 (03:36→16:30)
[2018-08-07] MEDS: METOCLOPRAMIDE HCL 10 MG/2ML VIAL IV SCH ×4 (05:51→23:50)
[2018-08-07] MEDS: INSULIN REGULAR, HUMAN 100 UNIT/1 ML 3ML VIAL SQ SCH ×4 (06:00→23:50)
--- NOTE | 2018-08-07 07:28 | NUR ---
Received patient in report this morning. NG Tube to L nare, connected to LCS, about 250 mL in canister. Patient resting in bed at this time. NC with 1L O2. Bed locked in lowest position. Call light in reach.
[2018-08-07] MEDS: FAMOTIDINE 20 MG/2 ML VIAL IV SCH (08:50)
[2018-08-07] MEDS: LOSARTAN POTASSIUM 100 MG TAB PO SCH (08:51)
[2018-08-07] MEDS: HYDROCHLOROTHIAZIDE 25 MG TAB PO SCH (08:51)
[2018-08-07] MEDS: METOPROLOL TARTRATE 50 MG TAB PO SCH ×2 (08:51→21:00)
[2018-08-07] MEDS: CARBIDOPA/LEVODOPA 10/100 TAB PO SCH ×4 (08:51→23:00)
--- NOTE | 2018-08-07 08:54 | NUR ---
After medication given, NGT clamped.
--- NOTE | 2018-08-07 11:34 | NUR ---
Patient is A&Ox3. Lung sounds clear. Bowel sounds active. Patient had small BM noted to be bloody and mucoid. Patient still d/t void by 1400. Patient up to chair for about an hour. Tolerated well. AXEL drain had 20mL serous output. 1L NC to keep O2 above 90%. Skin intact. Abdominal binder in place, clean and dry. Patient needs assistance up but can ambulate and stand on own. IV to L forearm asymptomatic, intact, and patent. Bed locked in lowest position, personal belongings in reach, call light in reach. NG tube still clamped to test how patient tolerates not being on suction. No nausea reported at this time.
[2018-08-07] MEDS: ACETAMINOPHEN 1000 MG/100 ML IV PRN ×2 (11:52→18:05)
--- NOTE | 2018-08-07 12:30 | NUR ---
Patient voided at this time. 100mL in hat, more in toilet.
--- NOTE | 2018-08-07 12:58 | NUR ---
Re-established LCWS at this time. Clear brown with sediment noted. No nausea or vomiting in the last four hours that suction was turned off.
--- NOTE | 2018-08-07 14:49 | NUR ---
Nutrition Screen Note RD Recommendation for Physician: -ADAT to GI soft, low sodium, 1800 ADA diet per MD. -Consider alternate source of nutrition if diet is not advanced within 48 hours. Plan of Care: RD following, monitoring for tolerance and adequacy Nutrition reason for involvement: Diet- NPO x 5 days Primary Diagnose(s): Sigmoid colon cancer PMH: Hypertension, gout, diabetes mellitus type 2, restless legs syndrome, COPD, on oxygen, reports that she has been hospitalized for a while status post colon resection due to malignant colon tumor per cardiology consultation note. Ht: 68 in Wt: 233 lb BMI: 35.0 kg/m2 IBW: [address] Assessment: (08/07) 73 YOF admitted for sigmoid colon cancer. Spoke with nurse and discussed pt during rounds, inappropriate to interview pt at this time. Pt has NG tube placed that was set for suctioning; they have now clamped it to see how the pt tolerates it. Advancement of diet will be up to the MD if pt can tolerate clamped NG tube. They are doing trials to wean pt. Will continue to monitor pts diet advancement to ensure she is meeting her caloric and protein needs daily and if there is a need for an ONS after diet advances. Chart reviewed. Labs and meds reviewed. Will continue to monitor. Current Diet: NPO Malnutrition Evaluation (08/07) The patient does not meet criteria for a specified degree of malnutrition at this time. Will re-evaluate at follow-up as appropriate. Diet Education Needs Assessment: Diet education not indicated. Nutrition Care Level: MOD Signed: Misa Liu, RD, LD
--- NOTE | 2018-08-07 16:30 | NUR ---
Disconnected from continuous suction on NGT. Due to reconnect at 2029.
--- NOTE | 2018-08-07 16:33 | Progress Note ---
DATE: 08/07/2018 Cardiology Progress Note SUBJECTIVE: The patient denies chest pain or shortness of breath. OBJECTIVE: VITAL SIGNS: Temperature 97 degrees, pulse 103, respiratory rate 20, blood pressure 187/84, and oxygen saturation 90% on 1 L nasal cannula. GENERAL: Awake, alert, in no acute distress. LUNGS: Clear to auscultation bilaterally. No wheezes or crackles. CARDIOVASCULAR: Normal rate. Regular rhythm. No murmur. Normal S1, S2. ABDOMEN: Soft with abdominal binder in place. No tenderness to palpation. EXTREMITIES: No edema. CARDIAC MEDICATIONS: Metoprolol tartrate 50 mg p.o. q.12 hours, hydrochlorothiazide 25 mg p.o. daily, losartan 100 mg p.o. daily, and amlodipine 5 mg p.o. daily. LABORATORY DATA: None today. IMPRESSION: 1. Hypertension, uncontrolled. 2. Diabetes mellitus, type 2. 3. Chronic obstructive pulmonary disease. 4. Exploratory laparotomy, low anterior resection with transanal stapled anastomosis and bilateral salpingo-oophorectomy. 5. Carcinoma of the sigmoid colon. RECOMMENDATIONS: Discontinue amlodipine. Start nifedipine. We will review the patient's echocardiogram. Continue current cardiac medications otherwise. Pain control. Thank you for this consult. We will continue to follow. Estefani Birch MD ABS/MODL /[id number]
--- NOTE | 2018-08-07 19:43 | NUR ---
Removed ng tube as per dr.Rodriguez ruano.
[2018-08-07] MEDS: NICOTINE 21 MG/EA PATCH TOP SCH (21:14)
--- NOTE | 2018-08-07 22:00 | NUR ---
Assisted the pt to use rest room.had small amount of mucoid bowel movement.pt is back to bed safely.Assessment done.no resp.distress.no vomiting.bed locked and in lowest position.phone and aleida light within reach.instructed to call for assistance as needed.
[2018-08-08] VITALS (7 sets, daily range): BP systolic 152–186; BP diastolic 68–85
[2018-08-08] MEDS: ACETAMINOPHEN 1000 MG/100 ML IV PRN (00:08)
[2018-08-08] MEDS: HYDROMORPHONE 2MG/ML 2 MG/ML ML IV PRN (04:30)
[2018-08-08 05:51] LABS: BASOPHILS # (AUTO) 0.1 (0.0-0.1); BASOPHILS % 0.4 % (0.0-1.0); EOSINOPHILS # (AUTO) 0.3 (0.0-0.4); EOSINOPHILS % 1.9 % (0.0-6.0); HEMATOCRIT 38.1 % (34.2-44.1); LYMPHOCYTES # (AUTO) 1.6 (1.0-3.2); LYMPHOCYTES % 11.7 % (18.0-39.1); MEAN CORPUSCULAR HEMOGLOBIN 28.9 pg (28-32); MEAN CORPUSCULAR HGB CONC 31.5 g/dL (31-35); MEAN CORPUSCULAR VOLUME 91.8 fL (81-99); MONOCYTES # (AUTO) 1.1 (0.2-0.8); NEUTROPHILS # (AUTO) 10.8 (2.1-6.9); PLATELET COUNT 290 x10e3/uL (140-360); RED BLOOD COUNT 4.15 x10e6/uL (3.6-5.1); RED CELL DISTRIBUTION WIDTH 13.7 % (11.7-14.4)
[2018-08-08] MEDS: INSULIN REGULAR, HUMAN 100 UNIT/1 ML 3ML VIAL SQ SCH ×4 (06:00→23:31)
[2018-08-08 06:06] LABS: ANION GAP 12.7 mmol/L (8-16); BLOOD UREA NITROGEN 15 mg/dL (7-26); BUN/CREATININE RATIO 23 (6-25); CALCIUM 8.9 mg/dL (8.4-10.2); CARBON DIOXIDE 30 mmol/L (22-29); CHLORIDE 101 mmol/L (98-107); CREATININE, SERUM 0.66 mg/dL (0.57-1.11); EST GLOMERULAR FILTRATION RATE > 60 ML/MIN (60-); GLUCOSE 124 mg/dL (74-118); SODIUM 141 mmol/L (136-145)
[2018-08-08] MEDS: METOCLOPRAMIDE HCL 10 MG/2ML VIAL IV SCH ×4 (06:06→23:55)
[2018-08-08 06:10] LABS: POTASSIUM 2.7 mmol/L (3.5-5.1)
--- NOTE | 2018-08-08 06:50 | NUR ---
Lab critical value k 2.7 paged to .Report given to the oncoming rn.walking rounds done.stable condition.
[2018-08-08] MEDS ORDERED: KCL 40MEQ/0.9% SOD CHL 1,000 ML IV ONE (07:45)
--- NOTE | 2018-08-08 07:55 | NUR ---
Received patient in report this morning. Patient resting in bed at this time. IV asymptomatic, intact, and patent. No S&S of distress at this time. Call light in reach. Bed locked in lowest position.
[2018-08-08] MEDS: METOPROLOL TARTRATE 50 MG TAB PO SCH ×2 (08:45→20:42)
[2018-08-08] MEDS: NIFEDIPINE CR 30 MG TAB PO SCH (08:45)
[2018-08-08] MEDS: LOSARTAN POTASSIUM 100 MG TAB PO SCH (08:45)
[2018-08-08] MEDS: CARBIDOPA/LEVODOPA 10/100 TAB PO SCH ×3 (08:45→20:42)
[2018-08-08] MEDS: HYDROCHLOROTHIAZIDE 25 MG TAB PO SCH (08:45)
[2018-08-08] MEDS: FAMOTIDINE 20 MG/2 ML VIAL IV SCH (08:45)
--- NOTE | 2018-08-08 12:13 | Progress Note ---
DATE: 08/08/2018 Cardiology Progress Note SUBJECTIVE: The patient denies chest pain or shortness of breath. She states she is able to tolerate her diet. OBJECTIVE: VITAL SIGNS: Temperature 98.4 degrees, pulse 88, respiratory rate 18, blood pressure 183/81, oxygen saturation 92% on 1 L nasal cannula. GENERAL: Awake, alert, no acute distress. LUNGS: Clear to auscultation bilaterally. No wheeze or crackles. CARDIOVASCULAR: Normal rate, regular rhythm. No murmur. Normal S1, S2. ABDOMEN: Soft with abdominal binder in place. EXTREMITIES: No edema. CARDIAC MEDICATIONS: Nifedipine 60 mg p.o. daily, metoprolol tartrate 50 mg p.o. q.12 hours, hydrochlorothiazide 25 mg p.o. daily, losartan 100 mg p.o. daily. LABORATORY DATA: WBC 13.96, hemoglobin 12, hematocrit 38.1, platelets 290. Sodium 141, potassium 2.7, chloride 101, CO2 of 30, BUN 15, creatinine 0.66. IMPRESSION: 1. Hypertension, uncontrolled. 2. Diabetes mellitus type 2. 3. Chronic obstructive pulmonary disease. 4. Exploratory laparotomy, low anterior resection with transanal stapled anastomosis and bilateral salpingo oophorectomy. 5. Carcinoma of sigmoid colon. RECOMMENDATIONS: Continue current cardiac medications. Monitor response to nifedipine. If blood pressure remains elevated, we will further titrate nifedipine. Continue current cardiac medications. Thank you for this consult. We will continue to follow. Estefani Birch MD ABS/MODL /[id number]
[2018-08-08] MEDS: HYDRALAZINE HCL 20 MG/ML VIAL IV PRN (12:33)
[2018-08-08] MEDS: NICOTINE 21 MG/EA PATCH TOP SCH (20:41)
[2018-08-08] MEDS ORDERED: ACETAMINOPHEN 1000 MG/100 ML IV PRN (20:45)
--- NOTE | 2018-08-08 21:00 | NUR ---
Assessment done.no resp.distress.head ache voiced 07/02.nasal cannula 1l O2 on flow.ambulates with walker and stand by assistance.voided.bed locked and in lowest position.phone and call light within reach.instructed to call for assistance as needed.abd incision site is dry and intact.tolerated the diet.
[2018-08-09] VITALS (8 sets, daily range): BP systolic 135–196; BP diastolic 67–82
[2018-08-09] MEDS: HYDRALAZINE HCL 20 MG/ML VIAL IV PRN ×2 (00:05→20:52)
[2018-08-09] MEDS: HYDROMORPHONE 2MG/ML 2 MG/ML ML IV PRN (01:49)
[2018-08-09] MEDS: SODIUM CHLORIDE 0.9% 1000ML 1,000 ML IV SCH (02:43)
--- NOTE | 2018-08-09 03:00 | NUR ---
Assisted to ambulate .pt is back to bed safely.voided.stable condiiton.tolerated the diet.
[2018-08-09] MEDS: METOCLOPRAMIDE HCL 10 MG/2ML VIAL IV SCH ×3 (05:02→16:51)
[2018-08-09] MEDS: INSULIN REGULAR, HUMAN 100 UNIT/1 ML 3ML VIAL SQ SCH ×4 (05:27→20:52)
[2018-08-09 06:27] LABS: BASOPHILS # (AUTO) 0.1 (0.0-0.1); BASOPHILS % 0.5 % (0.0-1.0); EOSINOPHILS # (AUTO) 0.6 (0.0-0.4); EOSINOPHILS % 4.3 % (0.0-6.0); HEMOGLOBIN 12.2 g/dL (12.0-16.0); LYMPHOCYTES # (AUTO) 2.3 (1.0-3.2); LYMPHOCYTES % 15.9 % (18.0-39.1); MEAN CORPUSCULAR HEMOGLOBIN 29.3 pg (28-32); MEAN CORPUSCULAR HGB CONC 32.1 g/dL (31-35); MEAN CORPUSCULAR VOLUME 91.1 fL (81-99); MONOCYTES # (AUTO) 1.1 (0.2-0.8); MONOCYTES % 7.5 % (4.4-11.3); NEUTROPHILS % 70.7 % (38.7-80.0); PLATELET COUNT 294 x10e3/uL (140-360); RED BLOOD COUNT 4.17 x10e6/uL (3.6-5.1); RED CELL DISTRIBUTION WIDTH 13.8 % (11.7-14.4)
[2018-08-09 06:48] LABS: ANION GAP 8.1 mmol/L (8-16); BLOOD UREA NITROGEN 9 mg/dL (7-26); BUN/CREATININE RATIO 14 (6-25); CALCIUM 8.7 mg/dL (8.4-10.2); CARBON DIOXIDE 33 mmol/L (22-29); CHLORIDE 101 mmol/L (98-107); CREATININE, SERUM 0.65 mg/dL (0.57-1.11); EST GLOMERULAR FILTRATION RATE > 60 ML/MIN (60-); GLUCOSE 116 mg/dL (74-118); POTASSIUM 3.1 mmol/L (3.5-5.1); SODIUM 139 mmol/L (136-145)
--- NOTE | 2018-08-09 06:50 | NUR ---
Report given to oncoming rn.walking rounds done.stable condition.
[2018-08-09] MEDS: CARBIDOPA/LEVODOPA 10/100 TAB PO SCH ×3 (08:39→20:52)
[2018-08-09] MEDS: METOPROLOL TARTRATE 50 MG TAB PO SCH ×2 (08:39→20:52)
[2018-08-09] MEDS: LOSARTAN POTASSIUM 100 MG TAB PO SCH (08:39)
[2018-08-09] MEDS: HYDROCHLOROTHIAZIDE 25 MG TAB PO SCH (08:39)
[2018-08-09] MEDS: FAMOTIDINE 20 MG/2 ML VIAL IV SCH (08:39)
[2018-08-09] MEDS: NIFEDIPINE CR 30 MG TAB PO SCH ×2 (08:39→16:50)
--- NOTE | 2018-08-09 13:05 | NUR ---
CASE MANAGEMENT ASSESSMENT Infrastructure Architect to bedside to discuss plan of care with patient/family. CM/SW role and care transitions discussed. Anticipated discharge plan discussed along with duration of care. CM/SW discussed patients right to make decisions in care. CM/SW work hours given. Patient lives: with her goddaughter and goddaughter's family Admit/Transfer: from PACU Hospital/ER visits since last admit: 0; last in hospital in [facility] end of June POA/Emergency contact: sean Borges [phone] Current/Previous Home Health: none PCP/Follow-up Care: will follow up with Dr. Navarro after discharge; PCP is Dr. Simone Mcfarland in the [facility] Current/Previous DME: none Pt states she is very active at home. Medications (referring to index hospitalization or the first time you were in the hospital) a. Were changes made in your medications when you were in the hospital on June 2018? no b. Did you understand the changes? n/a c. Were you able to obtain your new medications right away? n/a d. Were you able to take your medications like the doctor wanted you to? n/a e. Did the hospital give you an accurate, easy to understand list of medications when you left? n/a Scale of 1-10 how comfortable does patient feel with disease management in outpatient settin Other Services: none Employment Status: retired Areas of Concerns: recent surgery Referral Needs: may need home health Education Needs: post operative care, medical management IMM/HERNDON given and signed (if applicable): none at this time Goal for discharge: home CM/SW left business card at the bedside with contact information. Name and number was also written on the patients whiteboard. Patient verbalized understanding of discussion. CM will follow-up with ongoing discharge and transition of care needs.
--- NOTE | 2018-08-09 18:26 | Progress Note ---
DATE: 08/09/2018 Cardiology Progress Note SUBJECTIVE: The patient denies chest pain or shortness of breath. OBJECTIVE: VITAL SIGNS: Temperature 97.6 degrees, pulse 77, respiratory rate 20, blood pressure 175/75, oxygen saturation 95% on 1 L nasal cannula. GENERAL: Awake, alert, in no acute distress. LUNGS: Clear to auscultation bilaterally. No wheezes or crackles. CARDIOVASCULAR: Normal rate, regular rhythm. No murmur. Normal S1, S2. ABDOMEN: Soft, nontender. EXTREMITIES: No edema. CARDIAC MEDICATIONS: Nifedipine 60 mg p.o. daily, metoprolol tartrate 50 mg p.o. q.12 hours, hydrochlorothiazide 25 mg p.o. daily, losartan 100 mg p.o. daily. LABORATORY DATA: WBC 14.19, hemoglobin 12.2, hematocrit 38, platelets 294. Sodium 139, potassium 3.1, chloride 101, CO2 33, BUN 9, creatinine 0.65. IMPRESSION: 1. Hypertension, not well controlled. 2. Diabetes mellitus type 2. 3. Chronic obstructive pulmonary disease. 4. Exploratory laparotomy, low anterior resection with transanal stable anastomosis and bilateral salpingo oophorectomy. 5. Carcinoma of the sigmoid colon. RECOMMENDATIONS: Titrate up nifedipine to b.i.d. We will monitor response. Continue current cardiac medications otherwise. Thank you for this consult. We will continue to follow. Estefani Birch MD ABS/MODL /[id number]
--- NOTE | 2018-08-09 19:03 | NUR ---
BEDSIDE SHIFT REPORT RECEIVED FROM Miladys CLINE RN. RECEIVED PT LAYING FOWLERS IN BED, AAOX3, RR EVEN AND NON-LABORED, ON RA. NO S/SX OF DISTRESS NOTED. DRESSING TO ANTERIOR ABD WITH BINDER. AXEL DRAIN TO (R) LOWER ABD. LEFT PT LAYING FOWLERS IN BED, BED IN LOW LOCKED POSITION, SIDE RAILS UPX2, CALL LIGHT AND PHONE WITHIN REACH.
[2018-08-09] MEDS: HYDROCODONE/APAP 7.5MG-325MG 1 EA TAB PO PRN (20:52)
[2018-08-09] MEDS: NICOTINE 21 MG/EA PATCH TOP SCH (20:52)
[2018-08-10] VITALS: BP 140/66
[2018-08-10] MEDS: SODIUM CHLORIDE 0.9% 1000ML 1,000 ML IV SCH (02:35)
[2018-08-10] MEDS: HYDROCODONE/APAP 7.5MG-325MG 1 EA TAB PO PRN (02:36)
[2018-08-10 04:00] VITALS: BP 152/68
[2018-08-10] MEDS: INSULIN REGULAR, HUMAN 100 UNIT/1 ML 3ML VIAL SQ SCH ×3 (07:30→16:30)
[2018-08-10 08:30] VITALS: BP 167/70
[2018-08-10 08:33] VITALS: BP 167/70
[2018-08-10] MEDS ORDERED: FAMOTIDINE 20 MG TAB PO SCH (09:00)
[2018-08-10] MEDS: HYDROCHLOROTHIAZIDE 25 MG TAB PO SCH (09:09)
[2018-08-10] MEDS: LOSARTAN POTASSIUM 100 MG TAB PO SCH (09:09)
[2018-08-10] MEDS: CARBIDOPA/LEVODOPA 10/100 TAB PO SCH ×2 (09:10→15:39)
[2018-08-10] MEDS: METOPROLOL TARTRATE 50 MG TAB PO SCH (09:10)
[2018-08-10] MEDS: NIFEDIPINE CR 30 MG TAB PO SCH (09:10)
--- NOTE | 2018-08-10 10:30 | NUR ---
IMM EXPLAINED, SIGNED BY PT AND PLACED ON CHART COPY TO PT IN CARE TRANSITIONS FOLDER
[2018-08-10] MEDS ORDERED: NIFEDIPINE CR 30 MG TAB PO ONE (11:15)
[2018-08-10 12:26] VITALS: BP 138/79
--- NOTE | 2018-08-10 13:05 | Progress Note ---
DATE: 08/10/2018 Cardiology Progress Note SUBJECTIVE: The patient denies chest pain or shortness of breath. OBJECTIVE: VITAL SIGNS: Temperature 97.8 degrees, pulse 91, respiratory rate 20, blood pressure 167/70, oxygen saturation 94% on room air. GENERAL: Awake, alert, in no acute distress. LUNGS: Clear to auscultation bilaterally. No wheezes or crackles. CARDIOVASCULAR: Normal rate, regular rhythm. No murmur. Normal S1, S2. ABDOMEN: Soft, nontender. EXTREMITIES: No edema. CARDIAC MEDICATIONS: Nifedipine 60 mg p.o. b.i.d., metoprolol tartrate 50 mg p.o. q.12 hours, hydrochlorothiazide 25 mg p.o. daily, losartan 100 mg p.o. daily. LABORATORY DATA: None today. IMPRESSION: 1. Hypertension, not well controlled. 2. Diabetes mellitus type 2. 3. Chronic obstructive pulmonary disease. 4. Exploratory laparotomy with low anterior resection with transanal stable anastomosis and bilateral salpingo-oophorectomy. 5. Carcinoma of the sigmoid colon. RECOMMENDATIONS: We will further increase nifedipine. Monitor response. Continue current cardiac medications otherwise. Thank you for this consult. We will continue to follow. Estefani Birch MD ABS/MODL /[id number]
[2018-08-10] MEDS ORDERED: NIFEDIPINE CR 30 MG TAB PO SCH (17:00)
[2018-08-10 17:11] VITALS: BP 166/79
== END 2018-08-10 19:03 | disposition home or self-care (01) | DRG 331 ==
LOC: OR 06:29 → PACU V 13:47 → ICU 15:18 → MED/SURG 08-04 16:53
PROVIDERS: ADMIT Surgery; ATTEND Surgery
PROC: 0UT20ZZ Resection of Bilateral Ovaries, Open Approach (ICD-10-PCS; 2018-08-02)
PROC: 0DTN4ZZ Resection of Sigmoid Colon, Percutaneous Endoscopic Approach (ICD-10-PCS; principal; 2018-08-02 09:00)
PROC: 0UT70ZZ Resection of Bilateral Fallopian Tubes, Open Approach (ICD-10-PCS; 2018-08-02 09:00)
DX: C18.7 Malignant neoplasm of sigmoid colon (principal); J44.9 Chronic obstructive pulmonary disease, unspecified; E11.9 Type 2 diabetes mellitus without complications; I16.0 Hypertensive urgency; I10 Essential (primary) hypertension; M10.9 Gout, unspecified; G25.81 Restless legs syndrome; Z99.81 Dependence on supplemental oxygen; N73.6 Female pelvic peritoneal adhesions (postinfective)
CPT/HCPCS: 36415; 71046; 74018; 80048; 80053; 82948; 85025; 88305; 88309; 88342; 93005; 93306; 96360; J0360; J0461; J0694; J1100; J2001; J2250; J2405; J2765; J7030

== ENCOUNTER → 2020-02-18 | Day surgery (SDC) | payer MEDICARE, OTHER ==
[2020-02-14 09:40] LABS: BASOPHILS # (AUTO) 0.1 (0.0-0.1); BASOPHILS % 0.8 % (0.0-1.0); EOSINOPHILS # (AUTO) 0.3 (0.0-0.4); EOSINOPHILS % 2.7 % (0.0-6.0); HEMATOCRIT 39.4 % (34.2-44.1); HEMOGLOBIN 12.4 g/dL (12.0-16.0); LYMPHOCYTES # (AUTO) 1.8 (1.0-3.2); LYMPHOCYTES % 17.2 % (18.0-39.1); MEAN CORPUSCULAR HEMOGLOBIN 27.9 pg (28-32); MEAN CORPUSCULAR HGB CONC 31.5 g/dL (31-35); MEAN CORPUSCULAR VOLUME 88.5 fL (81-99); MONOCYTES # (AUTO) 0.8 (0.2-0.8); MONOCYTES % 7.5 % (4.4-11.3); NEUTROPHILS # (AUTO) 7.6 (2.1-6.9); NEUTROPHILS % 71.4 % (38.7-80.0); PLATELET COUNT 334 x10e3/uL (140-360); RED BLOOD COUNT 4.45 x10e6/uL (3.6-5.1)
[~2020-02-18] MED LIST changes: +CETIRIZINE HCL10 MG PO; +FENTANYL CITRATE/PF 100MCG/2 ML INJ ONE; +FLONASE ALLERG9.9 ML INH; +HYOSCYAMINE 0.125 MG TAB ONE; +LIDOCAINE HCL 2% LOCAL INJ 5 ML SDV VIAL INJ ONE; +LOSARTAN-HCTZ1 EAC2 PO; +MIDAZOLAM HCL 2 MG/2 ML VIAL ONE; +OXYBUTYNIN CHLOR5 MG PO; +PIOGLITAZONE HC45 MG PO; +PROPOFOL IV EMULSION 10 MG/ML 20 ML VIAL ONE; +SIMETHICONE 40 MG/0.6 ML BTL ONE; +TRAZODONE HCL50 MG PO; +VICTOZA 2-0.6 MG/0.1 SC
[2020-02-18 10:25] VITALS: BP 160/82
== END | disposition home or self-care (01) ==
LOC: OR 05:25
PROVIDERS: ATTEND Internal Medicine Gastroenterology
DX: Z12.11 Encounter for screening for malignant neoplasm of colon (principal); Z85.038 Personal history of other malignant neoplasm of large intestine; Z98.0 Intestinal bypass and anastomosis status; K64.8 Other hemorrhoids; K59.00 Constipation, unspecified; K29.70 Gastritis, unspecified, without bleeding; K20.90 Esophagitis, unspecified without bleeding; E11.9 Type 2 diabetes mellitus without complications; J44.9 Chronic obstructive pulmonary disease, unspecified; I10 Essential (primary) hypertension; F17.210 Nicotine dependence, cigarettes, uncomplicated; Z88.8 Allergy status to other drugs, medicaments and biological substances; Z01.810 Encounter for preprocedural cardiovascular examination; Z01.812 Encounter for preprocedural laboratory examination; Z11.59 Encounter for screening for other viral diseases; Z79.82 Long term (current) use of aspirin; Z79.84 Long term (current) use of oral hypoglycemic drugs
CPT/HCPCS: 36415 ×2; 45378; 82948; 85025; 93005; J2001; J2250; J2704; J3010; U0002; 45330

== ENCOUNTER → 2024-02-07 | Day surgery (SDC) | payer MEDICARE ==
[2024-01-31 13:06] LABS: BASOPHILS % 0.2 % (0.0-1.0); EOSINOPHILS # (AUTO) 0.9 (0.0-0.4); EOSINOPHILS % 8.9 % (0.0-6.0); HEMATOCRIT 29.7 % (34.2-44.1); HEMOGLOBIN 8.1 g/dL (12.0-16.0); LYMPHOCYTES # (AUTO) 0.8 (1.0-3.2); LYMPHOCYTES % 8.1 % (18.0-39.1); MEAN CORPUSCULAR HEMOGLOBIN 20.9 pg (28-32); MEAN CORPUSCULAR HGB CONC 27.3 g/dL (31-35); MEAN CORPUSCULAR VOLUME 76.5 fL (81-99); MONOCYTES # (AUTO) 0.9 (0.2-0.8); MONOCYTES % 8.9 % (4.4-11.3); NEUTROPHILS # (AUTO) 7.3 (2.1-6.9); NEUTROPHILS % 73.3 % (38.7-80.0); PLATELET COUNT 281 x10e3/uL (140-360); RED BLOOD COUNT 3.88 x10e6/uL (3.6-5.1); RED CELL DISTRIBUTION WIDTH 16.6 % (11.7-14.4); WHITE BLOOD COUNT 9.99 x10e3/uL (4.8-10.8)
[~2024-02-07] MED LIST changes: +ACIDOPHILUS PEG; +AMLODIPINE BESYL5 MG PO; +CLOPIDOGREL75 MG PO; +DALIRESP500 MCG PO; -FENTANYL CITRATE/PF 100MCG/2 ML INJ ONE; -HYOSCYAMINE 0.125 MG TAB ONE; +LINZESS290 MCG PO; +LOSARTAN-HCTZ1 EACH PO; +MECLIZINE HCL12.5 MG PO; +MELOXICAM15 MG PO; +METOPROLOL SUCC50 MG PO; -MIDAZOLAM HCL 2 MG/2 ML VIAL ONE; +MOUNJARO5 MG/0.5 M SQ; -SIMETHICONE 40 MG/0.6 ML BTL ONE; +TRELEGY ELLIPT1 EACH INH
[2024-02-07] MEDS: LACTATED RINGER'S 1,000 ML ONE (06:56)
[2024-02-07 07:34] LABS: BASOPHILS # (AUTO) 0.1 (0.0-0.1); BASOPHILS % 1.3 % (0.0-1.0); EOSINOPHILS # (AUTO) 0.4 (0.0-0.4); EOSINOPHILS % 4.5 % (0.0-6.0); HEMATOCRIT 31.2 % (34.2-44.1); HEMOGLOBIN 8.6 g/dL (12.0-16.0); LYMPHOCYTES # (AUTO) 2.1 (1.0-3.2); LYMPHOCYTES % 24.7 % (18.0-39.1); MEAN CORPUSCULAR HEMOGLOBIN 21.1 pg (28-32); MEAN CORPUSCULAR HGB CONC 27.6 g/dL (31-35); MEAN CORPUSCULAR VOLUME 76.7 fL (81-99); MONOCYTES # (AUTO) 0.8 (0.2-0.8); MONOCYTES % 9.1 % (4.4-11.3); NEUTROPHILS % 59.8 % (38.7-80.0); PLATELET COUNT 509 x10e3/uL (140-360); RED BLOOD COUNT 4.07 x10e6/uL (3.6-5.1); RED CELL DISTRIBUTION WIDTH 17.2 % (11.7-14.4); WHITE BLOOD COUNT 8.37 x10e3/uL (4.8-10.8)
[2024-02-07 09:05] VITALS: TEMP 97.4
[2024-02-07 09:35] VITALS: BP 163/82; PULSE 86; RESP 16; O2SAT 97
== END | disposition home or self-care (01) ==
LOC: OR 06:11
PROVIDERS: ATTEND Internal Medicine Gastroenterology
DX: K21.9 Gastro-esophageal reflux disease without esophagitis (principal); Z85.038 Personal history of other malignant neoplasm of large intestine; K29.50 Unspecified chronic gastritis without bleeding; B96.81 Helicobacter pylori [H. pylori] as the cause of diseases classified elsewhere; K31.89 Other diseases of stomach and duodenum; R13.10 Dysphagia, unspecified; K44.9 Diaphragmatic hernia without obstruction or gangrene; K59.00 Constipation, unspecified; Z98.0 Intestinal bypass and anastomosis status; K64.8 Other hemorrhoids; Z90.49 Acquired absence of other specified parts of digestive tract; D50.9 Iron deficiency anemia, unspecified; J44.9 Chronic obstructive pulmonary disease, unspecified; E11.9 Type 2 diabetes mellitus without complications; I10 Essential (primary) hypertension; E78.5 Hyperlipidemia, unspecified; E66.01 Morbid (severe) obesity due to excess calories; Z01.810 Encounter for preprocedural cardiovascular examination; Z01.812 Encounter for preprocedural laboratory examination; Z79.1 Long term (current) use of non-steroidal anti-inflammatories (NSAID); Z79.02 Long term (current) use of antithrombotics/antiplatelets; Z79.82 Long term (current) use of aspirin; Z79.84 Long term (current) use of oral hypoglycemic drugs; Z79.85 Long-term (current) use of injectable non-insulin antidiabetic drugs; Z79.899 Other long term (current) drug therapy; Z68.35 Body mass index [BMI] 35.0-35.9, adult
CPT/HCPCS: 36415 ×2; 43239; 45378; 85025 ×2; 88305; 88342; 93005; J7121; J2003

== ENCOUNTER → 2024-02-22 | Outpatient (REF) | payer MEDICARE ==
[~2024-02-22] MED LIST changes: +IOPAMIDOL 370 MG/ML 100 ML INFUS..BTL INJ ONE; -LIDOCAINE HCL 2% LOCAL INJ 5 ML SDV VIAL INJ ONE; -PROPOFOL IV EMULSION 10 MG/ML 20 ML VIAL ONE
[2024-02-22 15:45] LABS: CREATININE, SERUM 0.9 mg/dL (0.57-1.11)
== END ==
LOC: CT 14:26
PROVIDERS: ATTEND Internal Medicine Gastroenterology
DX: R97.0 Elevated carcinoembryonic antigen [CEA] (principal)
CPT/HCPCS: 36415; 74177; 82565; 84520; Q9967